=== PATIENT | female | born 1980 | race Caucasian/White ===

== ENCOUNTER 2022-05-31 10:28 | Day surgery (SDC) | payer OTHER ==
[2022-05-29 18:23] LABS: Hemoglobin 11.7 g/dL (12.0-15.5); Mean Corpuscular HGB CONC 33.4 g/dL (32.0-36.0); Mean Corpuscular Hemoglobin 30.1 pg (27.0-33.0); Mean Platelet Volume 10.2 fl (7.4-10.4); Platelet Count 321 10x3/uL (150-450); RBC Distribution Width 15.2 % (11.5-14.5); Red Blood Cell (RBC) Count 3.89 10x6/uL (3.90-5.03); White Blood Cell (WBC) Count 8.4 10x3/uL (3.5-10.5)
[2022-05-29 18:38] LABS: BHCG - Serum POSITIVE (NEGATIVE); Pregs Control Background? CLEAR/WHITE (CLR/WHITE); Pregs Control Bar Appear? YES (CONTROL BAR)
[2022-05-30 14:17] VITALS: BMI 37.6
[2022-05-31] MEDS ORDERED: Gabapentin 300 MG CAP ONE (10:40)
[2022-05-31] MEDS ORDERED: CeleCOXIB 100 MG CAP ONE (10:40)
[2022-05-31] MEDS ORDERED: Famotidine/PF 20 mg/2ml Vial ONE (10:41)
[2022-05-31] MEDS ORDERED: Bupivacaine PF 0.5% 30 ML VIAL ONE (12:31)
[2022-05-31] MEDS ORDERED: Midazolam HCl 2 mg/2 ml Vial ONE ×2 (12:38→12:40)
[2022-05-31] MEDS ORDERED: PROPOFOL 20 ML ONE (12:40)
[2022-05-31] MEDS ORDERED: Dexamethasone 20 MG/5 ML VIAL ONE (12:41)
[2022-05-31] MEDS ORDERED: Rocuronium Bromide 10 MG/ML (10ML VIAL) ONE (12:41)
[2022-05-31] MEDS ORDERED: Glycopyrrolate 0.2 MG/ML 5 ML SYRINGE ONE (12:41)
[2022-05-31] MEDS ORDERED: Ketorolac Tromethamine 30 MG/ML VIAL ONE (12:41)
[2022-05-31] MEDS ORDERED: Fentanyl 100 MCG/2 ML VIAL ONE (12:41)
[2022-05-31] MEDS ORDERED: Ondansetron PF 4 MG/2 ML Vial ONE (12:41)
[2022-05-31] MEDS ORDERED: Lidocaine 1% PF 5 ML VIAL ONE (12:41)
[2022-05-31] MEDS ORDERED: CEFAZOLIN 2 GM VIAL ONE (12:52)
[2022-05-31] MEDS ORDERED: EPINEPHrine 1 MG/ML AMP ONE (13:35)
[2022-05-31] MEDS ORDERED: Meperidine HCl/PF 25 MG/ML VIAL ONE (14:32)
[2022-05-31] MEDS ORDERED: Ropivacaine 0.2% 550 ML 550 ML NERVE BLCK SCH (15:00)
== END 2022-05-31 19:14 | disposition home or self-care (01) ==
LOC: CSHSDC 10:28
PROVIDERS: ATTEND Obstetrics & Gynecology
PROC: 0UT94ZZ Resection of Uterus, Percutaneous Endoscopic Approach (ICD-10-PCS; principal; 2022-05-31)
PROC: 0UB74ZZ Excision of Bilateral Fallopian Tubes, Percutaneous Endoscopic Approach (ICD-10-PCS; principal; 2022-05-31)
DX: D25.9 Leiomyoma of uterus, unspecified (principal); N80.03 Adenomyosis of the uterus; N93.9 Abnormal uterine and vaginal bleeding, unspecified; N94.6 Dysmenorrhea, unspecified; K66.0 Peritoneal adhesions (postprocedural) (postinfection); Z79.82 Long term (current) use of aspirin
CPT/HCPCS: 36415; 84702; 84703; 85027; 86850; 86900; 86901; 88307; A4306; C1776; J0171; J1100; J1885; J2175; J2250; J2405; J2704; J2795; J3010; S0020; S0028